=== PATIENT | female | born 1955 | race African-American/Black ===

== ENCOUNTER 2016-06-05 23:20 | Emergency (ER) | payer BC ==
[~2016-06-05] VITALS: Ht 172.7 cm; Wt 128.8 kg
[~2016-06-05 23:20] MED LIST: LOSARTAN POTASS50 MG PO; NORCO 5-325 TA1 EACH PO; PROAIR HFA8.5 GM INH
[2016-06-06 00:03] LABS: ABSOLUTE NEUTROPHILS 7.5 thou/uL (1.4-8.2); BASOPHILS 0.4 % (0.0-2.0); EOSINOPHILS 1.2 % (0.0-3.0); HEMATOCRIT 31.7 % (37.0-47.0); HEMOGLOBIN 10.5 gm/dL (12.0-15.0); LYMPHOCYTES 10.1 % (24.0-44.0); MCH 26.9 pg (26.0-34.0); MCV 81.5 fL (80.0-100.0); MONOCYTES 3.8 % (1.0-8.0); PLATELET COUNT 210 thou/uL (150-400); POLYS 84.5 % (36.0-66.0); RBC 3.89 mil/uL (4.20-5.00); RDW 14.5 % (10.5-14.5); WBC 8.9 thou/uL (4.0-11.0)
[2016-06-06 00:10] LABS: MANUAL DIFF NO
[2016-06-06 00:13] LABS: CALCIUM 8.8 mg/dL (8.5-10.1); CREATININE 0.7 mg/dL (0.6-1.3); POTASSIUM 3.3 mmol/L (3.5-5.1)
[2016-06-06 01:23] VITALS: BP 173/68
[2016-06-06] MEDS ORDERED: VENTOLIN HFA 1818 GM INH (02:23)
[2016-06-06] MEDS ORDERED: ALBUTEROL2.5 MG/0.5 INH (02:23)
[2016-06-06] MEDS ORDERED: TESSALON PERLE100 MG PO (02:25)
== END 2016-06-06 02:31 | disposition home or self-care (01) ==
LOC: ER 23:20
PROVIDERS: Emergency Medicine
DX: J45.909 Unspecified asthma, uncomplicated (principal); I10 Essential (primary) hypertension